=== PATIENT | male | born 1955 | race Caucasian/White ===

== ENCOUNTER 2017-02-24 12:33 | Emergency (ER) | payer SELFPAY ==
[~2017-02-24] VITALS: Ht 193 cm; Wt 96.6 kg
[~2017-02-24 12:33] MED LIST: DEPA250T2 PO; SIMV20 PO; VENL75TA91 PO
[2017-02-24 12:42] VITALS: BP 136/84; PULSE 92; RESP 15; TEMP 98.3
[2017-02-24] MEDS ORDERED: CLIN300C5 PO ×2 (13:51→14:02)
--- NOTE | 2017-02-24 13:52 | PD ---
HPI Chief Complaint: Skin Problem Time Seen by Provider: 12:50 Travel History International Travel<30 days: No Contact w/Intl Traveler<30days: No Traveled to known affect area: No History of Present Illness HPI 62-year-old male here with an apparent abscess to the low back. Patient reports this area has been present for approximately 8 years with intermittent episodes of inflammation and draining. He reports over the last week area became increasingly more painful, swollen and started draining several days ago. He denies fever or chills. He has been applying black salve to the area. Symptom severity is moderate. Pain is aggravated by palpation of the area. No alleviating factors. PFSH Past Medical History Hx Anticoagulant Therapy: Yes (baby ASA) Blood Disorders: No Cancer: No Cardiovascular Problems: No Chemotherapy: No COPD: No Cerebrovascular Accident: Yes Diminished Hearing: No Endocrine: No Gastrointestinal Disorders: Yes GERD: Yes Glaucoma: No Genitourinary: No Headaches: Yes Hepatitis: No Hiatal Hernia: No Immune Disorder: No Musculoskeletal: No Neurologic: Yes (rgt sided numbness/tingling) Psychiatric: No Reproductive: No Respiratory: Yes Migraines: No Radiation Therapy: No Seizures: No Sleep Apnea: No Tetanus Vaccination: Unknown Influenza Vaccination: No ?: Not Past Surgical History Abdominal Surgery: No AICD: No Appendectomy: No Arteriovenous Shunt: No Cardiac Surgery: No Cholecystectomy: No Ear Surgery: No Endocrine Surgery: No Eye Surgery: No Genitourinary Surgery: No Gynecologic Surgery: No Insulin Pump: No Joint Replacement: No Oral Surgery: No Pacemaker: No Thoracic Surgery: No Social History Alcohol Use: Yes (2 x a week) Tobacco Use: No Substance Use: No Allergies-Medications (Allergen,Severity, Reaction): Coded Allergies: No Known Allergies (Verified Adverse Reaction, Unknown, 02/24/17) Reported Meds & Prescriptions Reported Meds & Active Scripts Active Ibuprofen 800 Mg Tab 800 Mg PO Q6HR PRN Clindamycin (Clindamycin HCl) 300 Mg Cap 300 Mg PO Q6H Review of Systems Except as stated in HPI: all other systems reviewed are Neg General / Constitutional: No: Fever Eyes: No: Visual changes HENT: No: Headaches Cardiovascular: No: Chest Pain or Discomfort Respiratory: No: Shortness of Breath Gastrointestinal: No: Abdominal Pain Physical Exam Narrative GENERAL: Alert and well-appearing 62-year-old male SKIN: Warm and dry. 2.5 CM raised skin lesion to the low back slightly left of the lumbar spine. The area has small amount of purulent drainage coming from the center. The area is indurated without fluctuance. HEAD: Normocephalic. EYES: No injection or drainage. NECK: Supple, trachea midline. CARDIOVASCULAR: Regular rate and rhythm RESPIRATORY: Breath sounds equal bilaterally. No accessory muscle use. GASTROINTESTINAL: Abdomen soft, non-tender, nondistended. MUSCULOSKELETAL: No cyanosis, or edema. BACK: No point tenderness of the spine. Without obvious deformity. No CVA tenderness. Data Data Last Documented VS Vital Signs Date Time Temp Pulse Resp B/P (MAP) Pulse Ox O2 Delivery O2 Flow Rate FiO2 02/24/17 12:42 98.3 92 15 136/84 (101) Orders Orders Ed Discharge Order (02/24/17 13:52) MDM Medical Decision Making Medical Screen Exam Complete: Yes Emergency Medical Condition: Yes Differential Diagnosis Abscess, cellulitis, unspecified skin lesion, skin carcinoma Narrative Course 62-year-old male here with an apparent abscess to the low back. Patient reports this area has been present for approximately 8 years with intermittent episodes of inflammation and draining. He has a 2.5 CM raised skin lesion draining small amounts of purulent drainage from the center. The area is indurated without fluctuance. Incision and drainage was performed. Patient tolerated procedure well. Patient was advised that this area needed reevaluation and probable biopsy from a acid regenerator area and he was instructed to schedule an appointment for dermatology this week. He was advised that this could be a cancer skin lesion. He verbalizes understanding and agrees to plan Diagnosis Primary Impression: Abscess Referrals: advanced dermatology [facility] Technologist Additional Instructions: Antibiotics as prescribed. Called to schedule a follow-up appointment with dermatology this week. Return if he developed new or worsening symptoms Scripts Clindamycin (Clindamycin) 300 Mg Cap 300 MG PO Q6H for Infection for 10 Days, #40 CAP 0 Refills Prov: Qing Meza 02/24/17 Ibuprofen (Ibuprofen) 800 Mg Tab 800 MG PO Q6HR Y for PAIN, #40 TAB 0 Refills Prov: Qing Meza 02/24/17 Disposition: 01 DISCHARGE HOME Condition: Stable Qing Meza Feb 24, 2017 13:52
[2017-02-24] MEDS ORDERED: IBUP1TAB7 PO (13:55)
== END 2017-02-24 14:10 | disposition home or self-care (01) ==
LOC: PHEFT 12:33
DX: L02.212 Cutaneous abscess of back [any part, except buttock and flank] (principal); Z79.82 Long term (current) use of aspirin; Z86.73 Personal history of transient ischemic attack (TIA), and cerebral infarction without residual deficits; Z87.19 Personal history of other diseases of the digestive system; Z86.69 Personal history of other diseases of the nervous system and sense organs
CPT/HCPCS: 10060